=== PATIENT | male | born 1960 | race Caucasian/White ===

== ENCOUNTER 2016-08-20 07:44 | Emergency (ER) | payer SELFPAY ==
[~2016-08-20] VITALS: Ht 172.7 cm; Wt 74.0 kg
[2016-08-20 07:48] VITALS: BP 149/88; PULSE 56; RESP 16; O2SAT 95
[2016-08-20 08:03] VITALS: TEMP 98.1
--- NOTE | 2016-08-20 08:13 | PD ---
HPI Chief Complaint: Skin Problem Time Seen by Provider: 08:01 Travel History International Travel<30 days: No Contact w/Intl Traveler<30days: No Traveled to known affect area: No History of Present Illness HPI 56-year-old male presents to the emergency Department with complaint of a lesion to his right scapula area that has been there for a year or more and is tender to touch and is requesting it to be removed. He had a similar lesion to the posterior right shoulder area that "fell off." He has been wearing a Band- Aid over the lesion on the right scapula to decrease irritation. He denies fever, chills, nausea, vomiting. Does not have insurance and has not followed up for further evaluation. Does not have primary care provider. Denies allergies. No other modifying factors or associated signs and symptoms. Review of Systems Except as stated in HPI: all other systems reviewed are Neg Physical Exam Narrative GENERAL: Well-nourished, well-developed male patient, in no acute distress; afebrile, nontoxic-appearing SKIN: Warm and dry. Left upper back over the scapular area with approximately 3 cm in diameter raised, red lesion; no signs of infection; without erythema, edema, drainage. There is an area to the left posterior axilla area that is dry and scabbed; without signs of infection; without erythema, edema, drainage. HEAD: Atraumatic. Normocephalic. EYES: Pupils equal and round. No scleral icterus. No injection or drainage. ENT: Mucosa pink and moist. Airway patent. NECK: Trachea midline. CARDIOVASCULAR: Regular rate. RESPIRATORY: No accessory muscle use. GASTROINTESTINAL: Flat. MUSCULOSKELETAL: No obvious deformities. No clubbing. No cyanosis. No edema. NEUROLOGICAL: Awake and alert. Oriented 3. No obvious cranial nerve deficits. Motor grossly within normal limits. Normal speech. PSYCHIATRIC: Appropriate mood and affect; insight and judgment normal. Data Data Last Documented VS Vital Signs Date Time Temp Pulse Resp B/P Pulse Ox O2 Delivery O2 Flow Rate FiO2 08/20/16 07:48 56 16 149/88 95 Room Air MDM Medical Screen Exam Complete: Yes Emergency Medical Condition: No Differential Diagnosis Melanoma, basal cell carcinoma, nonspecific skin lesions Narrative Course 56-year-old male requesting a skin lesion to his right upper back that has been there for a year or more be removed. The area is without signs of infection. Instructed patient to follow up with dermatology and he verbalized understanding and agreement. Vital signs are stable and the patient is stable for outpatient follow-up and treatment. The patient has no urgent or emergent medical complaints. There is no emergent or urgent medical need at this time. I instructed the patient to follow up with their primary care provider. A medical screening exam was performed: At the time of evaluation the presenting medical condition was determined not to be of an emergent nature. The patient was given the option of receiving additional care, but declined. Patient was given options for additional community resources from which to obtain care. The Patient Has Been advised to seek medical attention for their presenting complaint. The patient has been advised to return to the ER at any time if an emergent condition develops. Primary Impression: Encounter for medical screening examination Condition: Stable Aleksandra Roberto Aug 20, 2016 08:13
== END 2016-08-20 08:05 | disposition left against medical advice (07) ==
LOC: NEPB 07:44
DX: L98.9 Disorder of the skin and subcutaneous tissue, unspecified (principal)
CPT/HCPCS: 99281

== ENCOUNTER → 2016-08-26 | Day surgery (SDC) | payer OTHER ==
[~2016-08-26] MED LIST: BUPIVACAINE HCL PF 0.5% 10 ML VIAL ONE; BUPIVACAINE/EPINEPHRINE 0.5% PF 10 ML VIAL ONE; LACTATED RINGER'S 1000 ML INJ 1,000 ML ONE; LIDOCAINE 1%/EPINEPHrine 1:100,000 SOLN 20 ML VIAL ONE; MIDAZOLAM HCL 2 MG/2 ML VIAL ONE; NEOMYCIN/POLYMYXIN/BACITRACIN OINT 15 GM TUBE ONE; PROPOFOL 200 MG/20 ML AMP IV ONE; ceFAZolin INJ 1,000 MG VIAL ONE
--- NOTE | 2016-08-26 09:07 | TN ---
cc: LUCILA WILKES M.D. DATE OF SURGERY 08/26/2016 PREOPERATIVE DIAGNOSIS 1. Right posterior shoulder skin lesion 3 cm. 2. Right posterior back skin lesion 5 cm. 3. Left anterior shoulder skin lesion 1 cm. POSTOPERATIVE DIAGNOSIS 1. Right posterior shoulder skin lesion 3 cm. 2. Right posterior back skin lesion 5 cm. 3. Left anterior shoulder skin lesion 1 cm. 4 Pending permanent section. PROCEDURE 1. Wide excision of right posterior shoulder lesion measuring 4 x 6 cm. 2. Wide excision of right posterior back skin lesion measuring 5 x 7 cm double layer closure of both of these. 3. Excision of 1-cm left anterior shoulder lesion double layer closure leaving a defect 3 x 2 cm. ANESTHESIA TIVA SURGEON Dr. Wilkes INDICATIONS This is a pleasant 56-year-old gentleman who has these growing lesions as described above. Plans were made for wide excision with double layer closure. PROCEDURE The patient taken to the operating room, placed in the supine position. After TIVA, he was placed in the left lateral decubitus position. The two areas posterior, one on his shoulder, one on his back are prepped with Betadine, anesthetized with Marcaine. An elliptical incision measuring 5 x 7 cm made in both of the lesions. The first one is the back skin lesion. The wide 5 x 7 cm excision is then done elliptically and passed off the field. This is marked with a short a stitch at the 12 o'clock position. We then close the deep layer with a 3-0 Vicryl and the skin with a 3-0 nylon. Again the defect measured 5.7 cm to completely excise the mass. We then direct our attention the right posterior shoulder lesion. A similar 5 x 7 cm elliptical incision is made, sharply dissected. Flaps were created that is marked with a stitch at the 12 o'clock position. The deep layer is closed with a 3-0 Vicryl and skin is closed with a 3-0 nylon interrupted suture. Sterile bandage was applied to both of these wounds and then the patient was turned. The left anterior shoulder lesion, an elliptical incision measuring 3 x 4 cm was utilized to completely excise a little bit over 1 cm defect skin lesion. This was marked at the 12 o'clock position for orientation for the pathologist. The deep layer was closed with a 3-0 Vicryl and skin with a 3-0 nylon. Sterile bandage applied. The patient tolerated the procedure well and had no immediate postop complications. MD PARMINDER Cohen/KALEE /8:42 AM /8:52 AM
== END | disposition home or self-care (01) ==
LOC: ESDC 06:16
PROVIDERS: ATTEND Surgery
DX: C44.612 Basal cell carcinoma of skin of right upper limb, including shoulder (principal); C44.519 Basal cell carcinoma of skin of other part of trunk
CPT/HCPCS: 88305; J0690; J2250; J3010; J7120